=== PATIENT | male | born 1950 | race African-American/Black ===

== ENCOUNTER 2016-12-28 14:59 | Inpatient (IN) | payer MEDICARE, MEDICAID ==
[~2016-12-28] VITALS: Ht 213.4 cm; Wt 110.7 kg
[~2016-12-28 14:59] MED LIST: AMLO10TA80 PO; AZOPT OP; BUDE6HFA IH; CLON0.2T PO; DOXA2TAB PO; HYDR-4134 PO; HYDR-523 PO; LEVO250T2 PO; LISI40TA4 PO; TRAZ150T84 PO; ZOLP10TA6 PO; [UNRECOGNIZED DRUG - OTHER] NG
[2016-12-28] MEDS ORDERED: LORAZEPAM 0.5MG TABLET PO PRN (17:15)
[2016-12-28] MEDS ORDERED: ACETAMINOPHEN 325MG TABLET PO PRN (17:15)
[2016-12-28] MEDS ORDERED: ONDANSETRON HCL 4MG/2ML VIAL IV PRN (17:15)
[2016-12-28 18:01] VITALS: BP 91/74
[2016-12-28 18:09] VITALS: BP 91/74
[2016-12-28] MEDS: IPRATROPIUM/ALBUTEROL 0.5-3(2.5)MG/3ML NEB HHN SCH (18:15)
[2016-12-28] MEDS: PREDNISONE 20MG TABLET PO SCH (18:24)
[2016-12-28 20:00] VITALS: BP 109/85
[2016-12-28] MEDS: IPRATROPIUM/ALBUTEROL 0.5-3(2.5)MG/3ML NEB HHN PRN (20:13)
[2016-12-28] MEDS: HYDROCODONE/APAP 7.5/325MG 1 TAB TABLET PO PRN (20:34)
[2016-12-28] MEDS: ALPRAZOLAM 0.5 MG TABLET PO PRN (20:36)
[2016-12-28] MEDS: ZOLPIDEM TARTRATE 5MG TABLET PO PRN (20:50)
[2016-12-28] MEDS: TRAZODONE HCL 100MG TABLET PO SCH (20:50)
[2016-12-28] MEDS ORDERED: TRAZODONE HCL 100 MG PO SCH (21:00)
[2016-12-28] MEDS ORDERED: ZOLPIDEM TARTRATE 5 MG PO SCH (21:00)
[2016-12-29] MEDS: IPRATROPIUM/ALBUTEROL 0.5-3(2.5)MG/3ML NEB HHN SCH ×7 (00:24→23:37)
[2016-12-29] MEDS: HYDROCODONE/APAP 7.5/325MG 1 TAB TABLET PO PRN ×4 (04:22→20:46)
[2016-12-29 07:04] LABS: BASOPHILS % 0.2 % (0.0-2.0); HEMATOCRIT. 34.2 % (42.0-52.0); HEMOGLOBIN. 11.3 g/dL (14.0-18.0); LYMPHOCYTES % 17.1 % (20.0-50.0); MEAN CORPUSCULAR HEMOGLOBIN 32.4 pg (28.0-32.0); MEAN CORPUSCULAR HGB CONC 33.1 g/dL (31.0-37.0); MEAN PLATELET VOLUME 7.1 fl (7.4-10.4); MONOCYTES % 10.1 % (2.0-8.0); NEUTROPHILS % 72.6 % (40.0-76.0); PLATELET 170 x1000/uL (130-400); RED BLOOD CELL COUNT 3.49 mill/uL (4.7-6.1); RED CELL DISTRIBUTION WIDTH 15.7 % (11.6-14.6); WHITE BLOOD COUNT 5.5 x1000/uL (4.5-11.0)
[2016-12-29 07:17] LABS: BG BASE EXCESS 3.6 mmol/L (-2.0-2.0); BG CARBOXYHEMOGLOBIN 0.5 % (0.5-1.5); BG DEOXYHEMOGLOBIN 3.3 % (0.0-5.0); BG METHEMOGLOBIN 0.2 % (0.0-1.5); BG OXYGEN SATURATION 96.7 % (92.0-98.5); BG PCO2 47.3 mmHg (35.0-45.0); BG PH 7.406 (7.350-7.450); BG PO2 96.2 mmHg (75.0-100.0); BG SAMPLE SITE RIGHT RADIAL; BG TOTAL HEMOGLOBIN 13.4 g/dL (12.0-18.0); BG VENT MODE NASAL CANNULA
[2016-12-29 07:22] LABS: ANION GAP 10; CALCIUM 8.2 mg/dL (8.5-10.1); CARBON DIOXIDE 30 mEq/L (21-32); CHLORIDE 106 mEq/L (98-107); INDEX HEMOLYSI 1 (1-3); INDEX ICTERIC 1 (1-4); INDEX LIPEMIC 1 (1-3); UREA NITROGEN BLOOD 31 mg/dL (7-21); eGFR > 60 mL/min (>60)
[2016-12-29 08:00] VITALS: BP 110/69
[2016-12-29] MEDS: PREDNISONE 20MG TABLET PO SCH ×2 (08:10→17:14)
[2016-12-29] MEDS: DORZOLAMIDE 2% OPHTH 10 ML BOTTLE OP SCH ×2 (08:13→17:14)
[2016-12-29] MEDS: AMLODIPINE 10MG TABLET PO SCH (08:19)
[2016-12-29] MEDS: DOCUSATE SODIUM 100MG CAPSULE PO PRN ×2 (08:19→20:44)
[2016-12-29 20:00] VITALS: BP 115/85
[2016-12-29] MEDS: TRAZODONE HCL 100MG TABLET PO SCH (20:44)
[2016-12-29] MEDS: ZOLPIDEM TARTRATE 5MG TABLET PO PRN (20:55)
[2016-12-29] MEDS: ALPRAZOLAM 0.5 MG TABLET PO PRN (21:26)
[2016-12-30] MEDS: IPRATROPIUM/ALBUTEROL 0.5-3(2.5)MG/3ML NEB HHN SCH ×5 (03:56→20:36)
[2016-12-30] MEDS: HYDROCODONE/APAP 7.5/325MG 1 TAB TABLET PO PRN ×5 (04:58→21:55)
[2016-12-30] MEDS: PREDNISONE 20MG TABLET PO SCH (08:22)
[2016-12-30] MEDS: DOCUSATE SODIUM 100MG CAPSULE PO PRN (08:22)
[2016-12-30] MEDS: AMLODIPINE 10MG TABLET PO SCH (08:23)
[2016-12-30] MEDS: DORZOLAMIDE 2% OPHTH 10 ML BOTTLE OP SCH ×2 (08:23→18:36)
[2016-12-30] MEDS: ALPRAZOLAM 0.5 MG TABLET PO PRN ×2 (11:27→21:53)
[2016-12-30] MEDS: BISACODYL 5MG TABLET PO PRN (11:29)
[2016-12-30 20:00] VITALS: BP 124/90
[2016-12-30] MEDS: ZOLPIDEM TARTRATE 5MG TABLET PO PRN (21:53)
[2016-12-30] MEDS: TRAZODONE HCL 100MG TABLET PO SCH (21:53)
[2016-12-31] MEDS: IPRATROPIUM/ALBUTEROL 0.5-3(2.5)MG/3ML NEB HHN SCH ×5 (03:32→20:20)
[2016-12-31] MEDS: HYDROCODONE/APAP 7.5/325MG 1 TAB TABLET PO PRN ×3 (06:36→21:22)
[2016-12-31 08:00] VITALS: BP 134/94
[2016-12-31] MEDS: DOCUSATE SODIUM 100MG CAPSULE PO PRN ×2 (08:52→17:22)
[2016-12-31] MEDS: AMLODIPINE 10MG TABLET PO SCH (08:53)
[2016-12-31] MEDS: DORZOLAMIDE 2% OPHTH 10 ML BOTTLE OP SCH ×2 (08:53→17:22)
[2016-12-31] MEDS ORDERED: LORAZEPAM 0.5MG TABLET PO PRN (09:15)
[2016-12-31] MEDS ORDERED: SODIUM CHLORIDE 10% FOR INH 15ML VIAL NEB INH SCH (12:00)
[2016-12-31] MEDS: ALPRAZOLAM 0.5 MG TABLET PO PRN ×2 (12:49→22:30)
[2016-12-31 13:42] LABS: ANION GAP 10; CALCIUM 8.5 mg/dL (8.5-10.1); CARBON DIOXIDE 32 mEq/L (21-32); CHLORIDE 104 mEq/L (98-107); INDEX HEMOLYSI 1 (1-3); INDEX ICTERIC 1 (1-4); INDEX LIPEMIC 1 (1-3); UREA NITROGEN BLOOD 21 mg/dL (7-21); eGFR > 60 mL/min (>60)
[2016-12-31 15:45] LABS: BASOPHILS % 0.5 % (0.0-2.0); EOSINOPHILS % 2.7 % (0.0-5.0); HEMATOCRIT. 38.3 % (42.0-52.0); HEMOGLOBIN. 12.6 g/dL (14.0-18.0); LYMPHOCYTES % 25.2 % (20.0-50.0); MEAN CORPUSCULAR HEMOGLOBIN 32.4 pg (28.0-32.0); MEAN CORPUSCULAR HGB CONC 32.8 g/dL (31.0-37.0); MEAN CORPUSCULAR VOLUME 98.7 fL (80.0-94.0); MEAN PLATELET VOLUME 7.1 fl (7.4-10.4); MONOCYTES % 11.1 % (2.0-8.0); NEUTROPHILS % 60.5 % (40.0-76.0); PLATELET 190 x1000/uL (130-400); RED BLOOD CELL COUNT 3.88 mill/uL (4.7-6.1); WHITE BLOOD COUNT 5.6 x1000/uL (4.5-11.0)
[2016-12-31 20:00] VITALS: BP 123/97
[2016-12-31] MEDS: QUETIAPINE FUMARATE 25MG TABLET PO SCH (21:00)
[2016-12-31] MEDS: SULFAMETHOXAZOLE/TRIMETHOPRIM 800/160MG TABLET PO SCH (21:21)
[2016-12-31] MEDS: TRAZODONE HCL 100MG TABLET PO SCH (21:21)
[2016-12-31] MEDS: ZOLPIDEM TARTRATE 5MG TABLET PO PRN (22:30)
[2017-01-01] VITALS: BP 112/88
[2017-01-01] MEDS: IPRATROPIUM/ALBUTEROL 0.5-3(2.5)MG/3ML NEB HHN PRN ×2 (01:34→14:05)
[2017-01-01] MEDS: IPRATROPIUM/ALBUTEROL 0.5-3(2.5)MG/3ML NEB HHN SCH ×6 (03:59→20:05)
[2017-01-01 04:00] VITALS: BP 118/76
[2017-01-01] MEDS: HYDROCODONE/APAP 7.5/325MG 1 TAB TABLET PO PRN ×2 (04:14→17:43)
[2017-01-01 08:00] VITALS: BP 110/87
[2017-01-01] MEDS: DORZOLAMIDE 2% OPHTH 10 ML BOTTLE OP SCH ×2 (09:06→17:30)
[2017-01-01] MEDS: AMLODIPINE 10MG TABLET PO SCH (09:07)
[2017-01-01] MEDS: QUETIAPINE FUMARATE 25MG TABLET PO SCH ×2 (09:07→20:37)
[2017-01-01] MEDS: SULFAMETHOXAZOLE/TRIMETHOPRIM 800/160MG TABLET PO SCH (09:07)
[2017-01-01] MEDS: DOCUSATE SODIUM 100MG CAPSULE PO PRN (09:31)
[2017-01-01] MEDS ORDERED: FUROSEMIDE 40MG/4ML VIAL IVP NR (14:24)
[2017-01-01 20:00] VITALS: BP 131/92
[2017-01-01] MEDS: TRAZODONE HCL 100MG TABLET PO SCH (20:37)
[2017-01-01] MEDS: ALPRAZOLAM 0.5 MG TABLET PO PRN (20:37)
[2017-01-02] MEDS: IPRATROPIUM/ALBUTEROL 0.5-3(2.5)MG/3ML NEB HHN SCH ×6 (00:01→20:13)
[2017-01-02] MEDS: MUPIROCIN 2% OINT 22GM TOP SCH ×3 (03:28→21:25)
[2017-01-02] MEDS: HYDROCODONE/APAP 7.5/325MG 1 TAB TABLET PO PRN ×2 (03:28→21:24)
[2017-01-02] MEDS: ALPRAZOLAM 0.5 MG TABLET PO PRN ×2 (06:52→15:34)
[2017-01-02 08:00] VITALS: BP 92/63
[2017-01-02] MEDS: AMLODIPINE 10MG TABLET PO SCH (08:45)
[2017-01-02] MEDS: QUETIAPINE FUMARATE 25MG TABLET PO SCH ×2 (09:17→21:24)
[2017-01-02] MEDS: BISACODYL 5MG TABLET PO PRN (09:17)
[2017-01-02] MEDS: DORZOLAMIDE 2% OPHTH 10 ML BOTTLE OP SCH ×2 (10:36→16:22)
[2017-01-02 20:00] VITALS: BP 108/72
[2017-01-02 20:36] VITALS: BP 112/84
[2017-01-02] MEDS: MULTIVITAMINS,THER W-MINERALS TABLET PO SCH (21:22)
[2017-01-02] MEDS: TRAZODONE HCL 100MG TABLET PO SCH (21:24)
[2017-01-02] MEDS: ZOLPIDEM TARTRATE 5MG TABLET PO PRN (21:24)
[2017-01-03] MEDS: IPRATROPIUM/ALBUTEROL 0.5-3(2.5)MG/3ML NEB HHN SCH ×6 (00:50→20:16)
[2017-01-03 08:00] VITALS: BP 131/81
[2017-01-03] MEDS: QUETIAPINE FUMARATE 25MG TABLET PO SCH ×2 (08:21→21:55)
[2017-01-03] MEDS: AMLODIPINE 10MG TABLET PO SCH (08:22)
[2017-01-03] MEDS: BISACODYL 5MG TABLET PO PRN (08:22)
[2017-01-03] MEDS: MULTIVITAMINS,THER W-MINERALS TABLET PO SCH (08:22)
[2017-01-03] MEDS: DORZOLAMIDE 2% OPHTH 10 ML BOTTLE OP SCH ×2 (08:23→16:45)
[2017-01-03] MEDS: MUPIROCIN 2% OINT 22GM TOP SCH ×2 (08:23→23:56)
[2017-01-03] MEDS: ALPRAZOLAM 0.5 MG TABLET PO PRN ×2 (13:25→22:00)
[2017-01-03] MEDS: HYDROCODONE/APAP 7.5/325MG 1 TAB TABLET PO PRN ×2 (16:46→20:08)
[2017-01-03 20:00] VITALS: BP 109/77
[2017-01-03] MEDS: TRAZODONE HCL 100MG TABLET PO SCH (21:55)
[2017-01-03] MEDS: ZOLPIDEM TARTRATE 5MG TABLET PO PRN (23:53)
[2017-01-04] MEDS: IPRATROPIUM/ALBUTEROL 0.5-3(2.5)MG/3ML NEB HHN SCH ×7 (00:06→23:27)
[2017-01-04 07:01] LABS: BASOPHILS % 0.5 % (0.0-2.0); EOSINOPHILS % 3.6 % (0.0-5.0); HEMATOCRIT. 35.3 % (42.0-52.0); HEMOGLOBIN. 11.8 g/dL (14.0-18.0); LYMPHOCYTES % 26.9 % (20.0-50.0); MEAN CORPUSCULAR HEMOGLOBIN 32.7 pg (28.0-32.0); MEAN CORPUSCULAR HGB CONC 33.4 g/dL (31.0-37.0); MEAN CORPUSCULAR VOLUME 97.9 fL (80.0-94.0); MEAN PLATELET VOLUME 7.1 fl (7.4-10.4); PLATELET 175 x1000/uL (130-400); RED BLOOD CELL COUNT 3.61 mill/uL (4.7-6.1); RED CELL DISTRIBUTION WIDTH 15.6 % (11.6-14.6); WHITE BLOOD COUNT 4.2 x1000/uL (4.5-11.0)
[2017-01-04 07:02] LABS: ANION GAP 10; CALCIUM 8.2 mg/dL (8.5-10.1); CARBON DIOXIDE 32 mEq/L (21-32); CHLORIDE 102 mEq/L (98-107); INDEX HEMOLYSI 1 (1-3); INDEX ICTERIC 1 (1-4); INDEX LIPEMIC 1 (1-3); UREA NITROGEN BLOOD 17 mg/dL (7-21); eGFR > 60 mL/min (>60)
[2017-01-04 08:00] VITALS: BP 99/79
[2017-01-04] MEDS: MULTIVITAMINS,THER W-MINERALS TABLET PO SCH (08:30)
[2017-01-04] MEDS: QUETIAPINE FUMARATE 25MG TABLET PO SCH ×3 (08:30→20:38)
[2017-01-04] MEDS: DORZOLAMIDE 2% OPHTH 10 ML BOTTLE OP SCH ×2 (08:30→16:47)
[2017-01-04] MEDS: MUPIROCIN 2% OINT 22GM TOP SCH ×2 (08:30→20:28)
[2017-01-04] MEDS: AMLODIPINE 10MG TABLET PO SCH (08:33)
[2017-01-04] MEDS ORDERED: COLISTIMETHATE SODIUM 150MG/VIAL INH SCH (15:00)
[2017-01-04] MEDS: ALPRAZOLAM 0.5 MG TABLET PO PRN ×2 (15:12→20:38)
[2017-01-04] MEDS: BISACODYL 5MG TABLET PO PRN (15:13)
[2017-01-04] MEDS ORDERED: ZOLPIDEM TARTRATE 5MG TABLET PO PRN (16:30)
[2017-01-04 20:00] VITALS: BP 119/85
[2017-01-04] MEDS: TRAZODONE HCL 100MG TABLET PO SCH (20:28)
[2017-01-04] MEDS: HYDROCODONE/APAP 7.5/325MG 1 TAB TABLET PO PRN (20:33)
[2017-01-05] VITALS: BP 100/68
[2017-01-05] MEDS: IPRATROPIUM/ALBUTEROL 0.5-3(2.5)MG/3ML NEB HHN SCH ×5 (01:53→15:45)
[2017-01-05] MEDS: HYDROCODONE/APAP 7.5/325MG 1 TAB TABLET PO PRN (07:02)
[2017-01-05 08:17] VITALS: BP 101/65
[2017-01-05] MEDS: MULTIVITAMINS,THER W-MINERALS TABLET PO SCH (10:13)
[2017-01-05] MEDS: ALPRAZOLAM 0.5 MG TABLET PO PRN (10:14)
[2017-01-05] MEDS: DORZOLAMIDE 2% OPHTH 10 ML BOTTLE OP SCH (10:14)
[2017-01-05] MEDS: AMLODIPINE 10MG TABLET PO SCH (10:14)
[2017-01-05] MEDS: MUPIROCIN 2% OINT 22GM TOP SCH (10:15)
[2017-01-05] MEDS: QUETIAPINE FUMARATE 25MG TABLET PO SCH (10:16)
[2017-01-05 15:59] VITALS: BP 102/79
== END 2017-01-05 16:25 | DRG 189 ==
PROVIDERS: ADMIT Psychiatry & Neurology Neurology; ATTEND Internal Medicine Critical Care Medicine
DX: J96.20 Acute and chronic respiratory failure, unspecified whether with hypoxia or hypercapnia (principal); J44.1 Chronic obstructive pulmonary disease with (acute) exacerbation; I47.1 Supraventricular tachycardia; J84.9 Interstitial pulmonary disease, unspecified; E78.5 Hyperlipidemia, unspecified; F06.31 Mood disorder due to known physiological condition with depressive features; G47.00 Insomnia, unspecified; G89.29 Other chronic pain; H26.9 Unspecified cataract; I11.9 Hypertensive heart disease without heart failure; I27.2 Other secondary pulmonary hypertension; F17.210 Nicotine dependence, cigarettes, uncomplicated; R91.8 Other nonspecific abnormal finding of lung field; Z96.89 Presence of other specified functional implants; B96.89 Other specified bacterial agents as the cause of diseases classified elsewhere; Z16.39 Resistance to other specified antimicrobial drug; Z60.2 Problems related to living alone; F41.9 Anxiety disorder, unspecified; I27.81 Cor pulmonale (chronic); I48.0 Paroxysmal atrial fibrillation; I71.2 Thoracic aortic aneurysm, without rupture; M54.30 Sciatica, unspecified side; R62.7 Adult failure to thrive; Z66 Do not resuscitate; Z82.49 Family history of ischemic heart disease and other diseases of the circulatory system; Z90.5 Acquired absence of kidney; Z83.3 Family history of diabetes mellitus; Z99.81 Dependence on supplemental oxygen; Z82.5 Family history of asthma and other chronic lower respiratory diseases
CPT/HCPCS: 36415; 36600; 71010; 80048; 82375; 82805; 83605; 85025; 87070; 87077; 87186; 93970; 94640; 97110; 97116; 97150; 97162; 97166; 97530; 97535; J0770; J1940; J7131; J7512; J7620

== ENCOUNTER 2017-05-12 03:05 | Emergency (ER) | payer MEDICARE, MEDICAID ==
[~2017-05-12] VITALS: Ht 175.3 cm; Wt 100.0 kg
[2017-05-12] MEDS ORDERED: IPRATROPIUM BROMIDE (0.02%) 0.5MG/2.5ML NEB HHN STA (04:26)
[2017-05-12] MEDS ORDERED: METHYLPREDNISOLONE SOD SUCC 125 MG/2 ML VIAL IV STA (04:26)
[2017-05-12] MEDS ORDERED: ALBUTEROL (0.083%) 2.5MG/3ML NEB HHN STA (04:26)
[2017-05-12 05:05] LABS: EOSINOPHILS % 0.4 % (0.0-5.0); HEMATOCRIT. 39.4 % (42.0-52.0); HEMOGLOBIN. 13.1 g/dL (14.0-18.0); LYMPHOCYTES % 19.8 % (20.0-50.0); MEAN CORPUSCULAR HEMOGLOBIN 31.8 pg (28.0-32.0); MEAN CORPUSCULAR VOLUME 95.3 fL (80.0-94.0); MEAN PLATELET VOLUME 7.6 fl (7.4-10.4); MONOCYTES % 12.4 % (2.0-8.0); NEUTROPHILS % 66.4 % (40.0-76.0); PLATELET 216 x1000/uL (130-400); RED BLOOD CELL COUNT 4.14 mill/uL (4.7-6.1); RED CELL DISTRIBUTION WIDTH 13.8 % (11.6-14.6)
[2017-05-12 05:21] LABS: CARBON DIOXIDE 37 mEq/L (21-32); CHLORIDE 100 mEq/L (98-107); TROPONIN I < 0.02 ng/mL (0.00-0.04)
[2017-05-12 05:36] LABS: INR 1.1; PROTHROMBIN TIME 11.4 sec
[2017-05-12 08:55] VITALS: BP 170/90
== END 2017-05-12 09:06 | disposition home or self-care (01) ==
LOC: ER 03:10
DX: J44.1 Chronic obstructive pulmonary disease with (acute) exacerbation (principal); Z87.891 Personal history of nicotine dependence
CPT/HCPCS: 36415; 71010; 80053; 83880; 84484; 85025; 85610; 94644; 96374; 99285; J2930; J7611

== ENCOUNTER 2017-07-08 17:57 | Inpatient (IN) | payer MEDICARE, MEDICAID ==
[2017-07-08] VITALS (8 sets, daily range): BP systolic 85–105; BP diastolic 48–66
[~2017-07-08] VITALS: Ht 175.3 cm; Wt 106.6 kg
[~2017-07-08 17:57] MED LIST changes: -AMLO10TA80 PO; -AZOPT OP; -BUDE6HFA IH; -CLON0.2T PO; -DOXA2TAB PO; +ETOMIDATE 2MG/ML 10ML VIAL IV ONE; -HYDR-4134 PO; -HYDR-523 PO; -LEVO250T2 PO; -LISI40TA4 PO; +SUCCINYLCHOLINE CHLORIDE 200MG/10ML VIAL IV ONE; -TRAZ150T84 PO; -ZOLP10TA6 PO; -[UNRECOGNIZED DRUG - OTHER] NG
[2017-07-08] MEDS ORDERED: MIDAZOLAM HCL 50 MG in DEXTROSE 5% WATER 40 ML IV ONE (18:30)
[2017-07-08] MEDS ORDERED: MIDAZOLAM HCL 50 MG in DEXTROSE 5% WATER 50ML IV PRN (18:30)
[2017-07-08] MEDS ORDERED: MIDAZOLAM HCL 2 MG/2 ML VIAL IV ONE ×2 (18:30→18:45)
[2017-07-08 18:45] LABS: BASOPHILS % 0.5 % (0.0-2.0); HEMATOCRIT. 36.6 % (42.0-52.0); LYMPHOCYTES % 8.3 % (20.0-50.0); MEAN CORPUSCULAR HEMOGLOBIN 31.9 pg (28.0-32.0); MEAN CORPUSCULAR VOLUME 97.7 fL (80.0-94.0); MEAN PLATELET VOLUME 7.7 fl (7.4-10.4); MONOCYTES % 13.9 % (2.0-8.0); NEUTROPHILS % 77.3 % (40.0-76.0); PLATELET 236 x1000/uL (130-400); RED BLOOD CELL COUNT 3.75 mill/uL (4.7-6.1); RED CELL DISTRIBUTION WIDTH 14.4 % (11.6-14.6)
[2017-07-08 18:48] LABS: PROTHROMBIN TIME 10.9 sec (9.4-11.6)
[2017-07-08] MEDS ORDERED: MIDAZOLAM HCL 2 MG/2 ML VIAL ONE (18:49)
[2017-07-08 18:52] LABS: CHLORIDE 96 mEq/L (98-107)
[2017-07-08 18:53] LABS: CLARITY URINE CLOUDY (CLEAR); COLOR URINE YELLOW (YELLOW); GLUCOSE URINE NEGATIVE (NEGATIVE); KETONES URINE NEGATIVE (NEGATIVE); LEUKOCYTE ESTERASE URINE NEGATIVE (NEGATIVE); NITRITE URINE NEGATIVE (NEGATIVE); OCCULT BLOOD URINE NEGATIVE (NEGATIVE); PROTEIN URINE 1+ (NEGATIVE); SPECIFIC GRAVITY URINE 1.023 (1.005-1.030); UROBILINOGEN URINE 0.2 E.U./dL (0.2-1.0)
[2017-07-08 18:57] LABS: CARBON DIOXIDE 43 mEq/L (21-32); TROPONIN I < 0.02 ng/mL (0.00-0.04)
[2017-07-08] MEDS ORDERED: ALBUTEROL (0.5%) 2.5MG/0.5ML NEB HHN ONE (19:15)
[2017-07-08] MEDS ORDERED: PROPOFOL 10MG/ML 100ML 100 ML IV SCH (19:15)
[2017-07-08] MEDS ORDERED: METHYLPREDNISOLONE SOD SUCC 125 MG/2 ML VIAL IV ONE (19:15)
[2017-07-08 20:54] LABS: BG BASE EXCESS 13.4 mmol/L (-2.0-2.0); BG CARBOXYHEMOGLOBIN 0.3 % (0.5-1.5); BG DEOXYHEMOGLOBIN 0.5 % (0.0-5.0); BG FRACTION INSPIRED OXYGEN 100; BG HCO3 ACT 42.2 mmol/L (22.0-26.0); BG METHEMOGLOBIN 0.5 % (0.0-1.5); BG OXYGEN SATURATION 99.5 % (92.0-98.5); BG OXYHEMOGLOBIN 98.7 % (94.0-97.0); BG PCO2 78.9 mmHg (35.0-45.0); BG PH 7.346 (7.350-7.450); BG PO2 411.5 mmHg (75.0-100.0); BG SAMPLE SITE LEFT RADIAL; BG TIDAL VOLUME(mL) 500 mL; BG TOTAL HEMOGLOBIN 11.8 g/dL (12.0-18.0); BG VENT MODE VENT - A/C; BG VENT RATE 20 set
[2017-07-08] MEDS ORDERED: NOREPINEPHRINE 8 MG in DEXT 5% WATER 242 ML IV PRN (23:15)
[2017-07-08] MEDS ORDERED: IPRATROPIUM/ALBUTEROL 0.5-3(2.5)MG/3ML NEB HHN PRN (23:15)
[2017-07-08] MEDS: METHYLPREDNISOLONE SOD SUCC 40 MG/ML VIAL IV SCH (23:32)
[2017-07-08] MEDS: FUROSEMIDE 40MG/4ML VIAL IVP SCH (23:32)
[2017-07-08] MEDS: IPRATROPIUM/ALBUTEROL 0.5-3(2.5)MG/3ML NEB HHN SCH (23:56)
[2017-07-08] MEDS: MIDAZOLAM HCL 100 MG in DEXT 5% WATER 80 ML IV PRN (23:57)
[2017-07-09] VITALS (74 sets, daily range): BP systolic 85–129; BP diastolic 57–92
[2017-07-09] MEDS ORDERED: MIDAZOLAM HCL 100 MG in DEXT 5% WATER 100 ML IV PRN (00:30)
[2017-07-09 06:14] LABS: BG BASE EXCESS 12.2 mmol/L (-2.0-2.0); BG DEOXYHEMOGLOBIN 2.4 % (0.0-5.0); BG FRACTION INSPIRED OXYGEN 60; BG HCO3 ACT 39.1 mmol/L (22.0-26.0); BG METHEMOGLOBIN 0.1 % (0.0-1.5); BG OXYGEN SATURATION 97.6 % (92.0-98.5); BG OXYHEMOGLOBIN 97.5 % (94.0-97.0); BG PCO2 63.9 mmHg (35.0-45.0); BG PH 7.405 (7.350-7.450); BG PO2 110.3 mmHg (75.0-100.0); BG SAMPLE SITE RIGHT BRACHIAL; BG TIDAL VOLUME(mL) 500 mL; BG TOTAL HEMOGLOBIN 11.3 g/dL (12.0-18.0); BG VENT MODE VENT - A/C; BG VENT RATE 18 set
[2017-07-09] MEDS: METHYLPREDNISOLONE SOD SUCC 40 MG/ML VIAL IV SCH (06:50)
[2017-07-09] MEDS: MIDAZOLAM HCL 100 MG in DEXT 5% WATER 80 ML IV PRN (06:53)
[2017-07-09 07:18] LABS: CHLORIDE 99 mEq/L (98-107)
[2017-07-09 07:37] LABS: HEMATOCRIT. 31.7 % (42.0-52.0); HEMOGLOBIN. 10.4 g/dL (14.0-18.0); MEAN CORPUSCULAR HEMOGLOBIN 31.6 pg (28.0-32.0); MEAN CORPUSCULAR VOLUME 96.6 fL (80.0-94.0); PLATELET 207 x1000/uL (130-400); RED BLOOD CELL COUNT 3.28 mill/uL (4.7-6.1); RED CELL DISTRIBUTION WIDTH 14.3 % (11.6-14.6)
[2017-07-09] MEDS: PROPOFOL 10MG/ML 100ML 100 ML IV PRN ×5 (07:47→22:20)
[2017-07-09] MEDS: METHYLPREDNISOLONE SOD SUCC 125 MG/2 ML VIAL IV SCH ×2 (08:25→16:07)
[2017-07-09] MEDS: FUROSEMIDE 40MG/4ML VIAL IVP SCH ×2 (08:25→16:07)
[2017-07-09 08:44] LABS: CARBON DIOXIDE 40 mEq/L (21-32)
[2017-07-09] MEDS: CEFEPIME 1,000 MG in DEXTROSE 5% WATER 50 ML IV SCH ×2 (10:07→22:12)
[2017-07-09] MEDS: PANTOPRAZOLE SODIUM 40 MG/VIAL IV SCH (11:47)
[2017-07-09] MEDS: ACETYLCYSTEINE 100MG/ML 10% VIAL 4ML INH SCH ×2 (11:50→20:12)
[2017-07-09] MEDS: IPRATROPIUM/ALBUTEROL 0.5-3(2.5)MG/3ML NEB HHN SCH ×2 (11:50→20:12)
[2017-07-09] MEDS: BUDESONIDE 0.5MG/2ML NEB HHN SCH ×2 (11:50→20:12)
[2017-07-09] MEDS: MORPHINE SULFATE 4 MG/ML CPJ (NOT FOR IM USE) IV PRN (12:27)
[2017-07-09 12:52] LABS: PLATELET ESTIMATE NORMAL
[2017-07-09] MEDS: THEOPHYLLINE ANHYDROUS 80 MG/15 ML 120ML PO SCH ×2 (13:27→22:12)
[2017-07-09] MEDS: SILDENAFIL CITRATE 20MG TABLET PO SCH ×2 (13:27→22:12)
[2017-07-09] MEDS: LORAZEPAM 2MG/ML CPJ IV PRN (14:14)
[2017-07-09] MEDS: ACETAMINOPHEN 650MG/20.3ML UDC PO PRN (16:07)
[2017-07-09] MEDS: ENOXAPARIN 30MG/0.3ML SYR SUBCUT SCH (21:48)
[2017-07-10] VITALS (47 sets, daily range): BP systolic 109–150; BP diastolic 74–100
[2017-07-10] MEDS: ACETYLCYSTEINE 100MG/ML 10% VIAL 4ML INH SCH ×7 (00:10→20:19)
[2017-07-10] MEDS: PROPOFOL 10MG/ML 100ML 100 ML IV PRN ×8 (00:34→23:20)
[2017-07-10] MEDS: METHYLPREDNISOLONE SOD SUCC 125 MG/2 ML VIAL IV SCH ×4 (00:35→23:20)
[2017-07-10] MEDS: IPRATROPIUM/ALBUTEROL 0.5-3(2.5)MG/3ML NEB HHN SCH ×6 (00:42→20:19)
[2017-07-10] MEDS: MORPHINE SULFATE 4 MG/ML CPJ (NOT FOR IM USE) IV PRN (04:45)
[2017-07-10] MEDS: THEOPHYLLINE ANHYDROUS 80 MG/15 ML 120ML PO SCH ×3 (05:44→21:07)
[2017-07-10] MEDS: SILDENAFIL CITRATE 20MG TABLET PO SCH ×3 (05:45→21:07)
[2017-07-10 06:21] LABS: HEMATOCRIT. 33.1 % (42.0-52.0); HEMOGLOBIN. 10.9 g/dL (14.0-18.0); MEAN CORPUSCULAR HEMOGLOBIN 31.7 pg (28.0-32.0); MEAN CORPUSCULAR VOLUME 96.2 fL (80.0-94.0); MEAN PLATELET VOLUME 8.1 fl (7.4-10.4); PLATELET 218 x1000/uL (130-400); RED BLOOD CELL COUNT 3.44 mill/uL (4.7-6.1); RED CELL DISTRIBUTION WIDTH 14.6 % (11.6-14.6)
[2017-07-10 06:48] LABS: CHLORIDE 97 mEq/L (98-107)
[2017-07-10 08:05] LABS: CARBON DIOXIDE 40 mEq/L (21-32)
[2017-07-10] MEDS: FUROSEMIDE 40MG/4ML VIAL IVP SCH ×2 (08:51→17:06)
[2017-07-10] MEDS: PANTOPRAZOLE SODIUM 40 MG/VIAL IV SCH (08:51)
[2017-07-10] MEDS: ENOXAPARIN 30MG/0.3ML SYR SUBCUT SCH ×2 (08:52→21:06)
[2017-07-10] MEDS: BUDESONIDE 0.5MG/2ML NEB HHN SCH ×2 (09:02→20:03)
[2017-07-10] MEDS: CEFEPIME 1,000 MG in DEXTROSE 5% WATER 50 ML IV SCH ×2 (09:02→21:07)
[2017-07-10 09:28] LABS: BG BASE EXCESS 16.3 mmol/L (-2.0-2.0); BG CARBOXYHEMOGLOBIN 0.3 % (0.5-1.5); BG DEOXYHEMOGLOBIN 7.9 % (0.0-5.0); BG FRACTION INSPIRED OXYGEN 40; BG HCO3 ACT 42.3 mmol/L (22.0-26.0); BG OXYGEN SATURATION 92.1 % (92.0-98.5); BG OXYHEMOGLOBIN 91.8 % (94.0-97.0); BG PCO2 58.4 mmHg (35.0-45.0); BG PH 7.478 (7.350-7.450); BG PO2 65.2 mmHg (75.0-100.0); BG SAMPLE SITE RIGHT BRACHIAL; BG TIDAL VOLUME(mL) 500 mL; BG TOTAL HEMOGLOBIN 11.5 g/dL (12.0-18.0); BG VENT MODE VENT - A/C; BG VENT RATE 18 set
[2017-07-10 12:09] LABS: PLATELET ESTIMATE NORMAL
[2017-07-10] MEDS: LORAZEPAM 2MG/ML CPJ IV PRN ×2 (17:26→23:37)
[2017-07-11] VITALS (48 sets, daily range): BP systolic 105–142; BP diastolic 71–98
[2017-07-11] MEDS: IPRATROPIUM/ALBUTEROL 0.5-3(2.5)MG/3ML NEB HHN SCH ×6 (00:08→20:13)
[2017-07-11] MEDS: PROPOFOL 10MG/ML 100ML 100 ML IV PRN ×7 (02:11→23:24)
[2017-07-11] MEDS: MORPHINE SULFATE 4 MG/ML CPJ (NOT FOR IM USE) IV PRN ×2 (03:25→22:44)
[2017-07-11] MEDS: ACETYLCYSTEINE 100MG/ML 10% VIAL 4ML INH SCH ×5 (04:24→20:14)
[2017-07-11 04:54] LABS: HEMATOCRIT. 32.5 % (42.0-52.0); HEMOGLOBIN. 10.8 g/dL (14.0-18.0); MEAN CORPUSCULAR HEMOGLOBIN 32.1 pg (28.0-32.0); MEAN CORPUSCULAR VOLUME 96.5 fL (80.0-94.0); PLATELET 214 x1000/uL (130-400); RED BLOOD CELL COUNT 3.37 mill/uL (4.7-6.1); RED CELL DISTRIBUTION WIDTH 14.3 % (11.6-14.6)
[2017-07-11] MEDS: SILDENAFIL CITRATE 20MG TABLET PO SCH ×3 (05:12→22:23)
[2017-07-11] MEDS: THEOPHYLLINE ANHYDROUS 80 MG/15 ML 120ML PO SCH ×3 (05:13→22:23)
[2017-07-11] MEDS: BUDESONIDE 0.5MG/2ML NEB HHN SCH ×2 (07:53→20:13)
[2017-07-11] MEDS: FUROSEMIDE 40MG/4ML VIAL IVP SCH ×2 (09:08→16:00)
[2017-07-11] MEDS: METHYLPREDNISOLONE SOD SUCC 125 MG/2 ML VIAL IV SCH ×2 (09:08→15:42)
[2017-07-11] MEDS: ENOXAPARIN 30MG/0.3ML SYR SUBCUT SCH ×2 (09:08→22:23)
[2017-07-11] MEDS: PANTOPRAZOLE SODIUM 40 MG/VIAL IV SCH (09:08)
[2017-07-11] MEDS: CEFEPIME 1,000 MG in DEXTROSE 5% WATER 50 ML IV SCH ×2 (09:09→22:23)
[2017-07-11 10:35] LABS: PLATELET ESTIMATE NORMAL
[2017-07-11 11:00] LABS: BG BASE EXCESS 14.1 mmol/L (-2.0-2.0); BG CARBOXYHEMOGLOBIN 0.3 % (0.5-1.5); BG DEOXYHEMOGLOBIN 6.7 % (0.0-5.0); BG FRACTION INSPIRED OXYGEN 50; BG HCO3 ACT 40.3 mmol/L (22.0-26.0); BG METHEMOGLOBIN 0.1 % (0.0-1.5); BG OXYGEN SATURATION 93.3 % (92.0-98.5); BG OXYHEMOGLOBIN 92.9 % (94.0-97.0); BG PCO2 57.9 mmHg (35.0-45.0); BG PO2 73.7 mmHg (75.0-100.0); BG SAMPLE SITE RIGHT RADIAL; BG TIDAL VOLUME(mL) 500 mL; BG TOTAL HEMOGLOBIN 12.1 g/dL (12.0-18.0); BG VENT MODE VENT - A/C; BG VENT RATE 18 set
[2017-07-11 13:44] LABS: BG BASE EXCESS 17.4 mmol/L (-2.0-2.0); BG CARBOXYHEMOGLOBIN 0.3 % (0.5-1.5); BG DEOXYHEMOGLOBIN 4.6 % (0.0-5.0); BG FRACTION INSPIRED OXYGEN 50; BG METHEMOGLOBIN 0.2 % (0.0-1.5); BG OXYGEN SATURATION 95.4 % (92.0-98.5); BG OXYHEMOGLOBIN 94.9 % (94.0-97.0); BG PCO2 55.3 mmHg (35.0-45.0); BG PH 7.509 (7.350-7.450); BG PO2 78.6 mmHg (75.0-100.0); BG SAMPLE SITE RIGHT RADIAL; BG TIDAL VOLUME(mL) 550 mL; BG VENT MODE VENT - A/C; BG VENT RATE 18 set
[2017-07-11] MEDS: ACETAMINOPHEN 650MG/20.3ML UDC PO PRN (19:36)
[2017-07-11] MEDS ORDERED: POTASSIUM CHLORIDE 20MEQ/PACKET PO SCH (19:45)
[2017-07-11] MEDS: METHYLPREDNISOLONE SOD SUCC 40 MG/ML VIAL IV SCH (23:18)
[2017-07-12] VITALS (66 sets, daily range): BP systolic 106–159; BP diastolic 71–111
[2017-07-12] MEDS: IPRATROPIUM/ALBUTEROL 0.5-3(2.5)MG/3ML NEB HHN SCH ×7 (00:01→23:44)
[2017-07-12] MEDS: PROPOFOL 10MG/ML 100ML 100 ML IV PRN ×2 (02:43→05:55)
[2017-07-12] MEDS: ACETYLCYSTEINE 100MG/ML 10% VIAL 4ML INH SCH ×6 (04:35→23:45)
[2017-07-12] MEDS: THEOPHYLLINE ANHYDROUS 80 MG/15 ML 120ML PO SCH ×3 (05:18→22:40)
[2017-07-12] MEDS: SILDENAFIL CITRATE 20MG TABLET PO SCH ×3 (05:18→22:40)
[2017-07-12 05:50] LABS: BASOPHILS % 0.2 % (0.0-2.0); HEMOGLOBIN. 11.1 g/dL (14.0-18.0); LYMPHOCYTES % 7.2 % (20.0-50.0); MEAN CORPUSCULAR HEMOGLOBIN 32.2 pg (28.0-32.0); MEAN CORPUSCULAR VOLUME 95.9 fL (80.0-94.0); MEAN PLATELET VOLUME 7.9 fl (7.4-10.4); MONOCYTES % 10.4 % (2.0-8.0); NEUTROPHILS % 82.2 % (40.0-76.0); PLATELET 213 x1000/uL (130-400); RED BLOOD CELL COUNT 3.44 mill/uL (4.7-6.1); RED CELL DISTRIBUTION WIDTH 14.2 % (11.6-14.6)
[2017-07-12 06:57] LABS: CHLORIDE 97 mEq/L (98-107); THEOPHYLLINE 5.6 ug/mL (10-20)
[2017-07-12 07:20] LABS: CARBON DIOXIDE 43 mEq/L (21-32)
[2017-07-12] MEDS: BUDESONIDE 0.5MG/2ML NEB HHN SCH ×2 (08:28→19:51)
[2017-07-12] MEDS: FUROSEMIDE 40MG/4ML VIAL IVP SCH (09:00)
[2017-07-12] MEDS: METHYLPREDNISOLONE SOD SUCC 40 MG/ML VIAL IV SCH ×3 (09:00→23:30)
[2017-07-12] MEDS: CEFEPIME 1,000 MG in DEXTROSE 5% WATER 50 ML IV SCH ×2 (09:01→21:24)
[2017-07-12] MEDS: PANTOPRAZOLE SODIUM 40 MG/VIAL IV SCH (09:01)
[2017-07-12] MEDS: ENOXAPARIN 30MG/0.3ML SYR SUBCUT SCH ×2 (09:02→21:24)
[2017-07-12 09:26] LABS: BG BASE EXCESS 13.1 mmol/L (-2.0-2.0); BG CARBOXYHEMOGLOBIN 0.5 % (0.5-1.5); BG FRACTION INSPIRED OXYGEN 50; BG HCO3 ACT 38.5 mmol/L (22.0-26.0); BG METHEMOGLOBIN 0.3 % (0.0-1.5); BG OXYHEMOGLOBIN 96.2 % (94.0-97.0); BG PCO2 51.3 mmHg (35.0-45.0); BG PH 7.493 (7.350-7.450); BG PO2 96.1 mmHg (75.0-100.0); BG SAMPLE SITE RIGHT RADIAL; BG TIDAL VOLUME(mL) 550 mL; BG TOTAL HEMOGLOBIN 13.4 g/dL (12.0-18.0); BG VENT MODE VENT - A/C; BG VENT RATE 14 set
[2017-07-12] MEDS: LORAZEPAM 2MG/ML CPJ IV PRN ×2 (09:49→18:12)
[2017-07-12] MEDS: FENTANYL CITRATE/PF 500 MCG in SODIUM CHLORIDE 0.9% 40 ML IV PRN ×2 (10:57→16:53)
[2017-07-12] MEDS: COLISTIMETHATE SODIUM 150MG/VIAL INH SCH ×2 (12:55→20:25)
[2017-07-12] MEDS ORDERED: FENTANYL CITRATE/PF 1,000 MCG in SODIUM CHLORIDE 0.9% 80 ML IV PRN (21:30)
[2017-07-12] MEDS ORDERED: FENTANYL CITRATE/PF 1,000 MCG in SODIUM CHLORIDE 0.9% 80 ML IV SCH (22:00)
[2017-07-12] MEDS: MORPHINE SULFATE 4 MG/ML CPJ (NOT FOR IM USE) IV PRN (22:22)
[2017-07-13] VITALS (34 sets, daily range): BP systolic 108–168; BP diastolic 63–102
[2017-07-13] MEDS: LORAZEPAM 2MG/ML CPJ IV PRN ×4 (01:11→21:39)
[2017-07-13] MEDS: IPRATROPIUM/ALBUTEROL 0.5-3(2.5)MG/3ML NEB HHN SCH ×5 (03:21→19:52)
[2017-07-13] MEDS: ACETYLCYSTEINE 100MG/ML 10% VIAL 4ML INH SCH ×5 (03:32→19:53)
[2017-07-13] MEDS: THEOPHYLLINE ANHYDROUS 80 MG/15 ML 120ML PO SCH ×3 (06:05→22:50)
[2017-07-13] MEDS: SILDENAFIL CITRATE 20MG TABLET PO SCH ×3 (06:05→21:39)
[2017-07-13 06:15] LABS: BASOPHILS % 0.2 % (0.0-2.0); HEMATOCRIT. 34.9 % (42.0-52.0); HEMOGLOBIN. 11.4 g/dL (14.0-18.0); LYMPHOCYTES % 7.8 % (20.0-50.0); MEAN CORPUSCULAR HEMOGLOBIN 31.9 pg (28.0-32.0); MEAN CORPUSCULAR VOLUME 97.5 fL (80.0-94.0); MEAN PLATELET VOLUME 7.9 fl (7.4-10.4); MONOCYTES % 11.3 % (2.0-8.0); NEUTROPHILS % 80.7 % (40.0-76.0); PLATELET 233 x1000/uL (130-400); RED BLOOD CELL COUNT 3.57 mill/uL (4.7-6.1)
[2017-07-13 06:34] LABS: CHLORIDE 101 mEq/L (98-107)
[2017-07-13 07:05] LABS: CARBON DIOXIDE 43 mEq/L (21-32)
[2017-07-13] MEDS: METHYLPREDNISOLONE SOD SUCC 40 MG/ML VIAL IV SCH ×2 (07:26→16:56)
[2017-07-13] MEDS: BUDESONIDE 0.5MG/2ML NEB HHN SCH ×2 (07:49→19:52)
[2017-07-13] MEDS: COLISTIMETHATE SODIUM 150MG/VIAL INH SCH (07:49)
[2017-07-13] MEDS: ACETAMINOPHEN 650MG/20.3ML UDC PO PRN (08:57)
[2017-07-13] MEDS: ENOXAPARIN 30MG/0.3ML SYR SUBCUT SCH ×2 (08:58→21:38)
[2017-07-13] MEDS: FUROSEMIDE 40MG/4ML VIAL IVP SCH (08:58)
[2017-07-13] MEDS: PANTOPRAZOLE SODIUM 40 MG/VIAL IV SCH (08:58)
[2017-07-13] MEDS: CEFEPIME 1,000 MG in DEXTROSE 5% WATER 50 ML IV SCH (09:00)
[2017-07-13 10:56] LABS: BG BASE EXCESS 19.4 mmol/L (-2.0-2.0); BG CARBOXYHEMOGLOBIN 0.4 % (0.5-1.5); BG CPAP (cmH2O) 0 cm(H2O); BG METHEMOGLOBIN 0.3 % (0.0-1.5); BG OXYHEMOGLOBIN 92.3 % (94.0-97.0); BG PCO2 67.6 mmHg (35.0-45.0); BG PO2 71.9 mmHg (75.0-100.0); BG SAMPLE SITE RIGHT RADIAL; BG TOTAL HEMOGLOBIN 13.2 g/dL (12.0-18.0); BG VENT MODE VENT - CPAP
[2017-07-13] MEDS ORDERED: LORAZEPAM 2MG/ML CPJ IV PRN (13:00)
[2017-07-13] MEDS: LEVOFLOXACIN 750MG PREMIX 150 ML IV SCH (13:30)
[2017-07-13 16:29] LABS: BG BASE EXCESS 18.9 mmol/L (-2.0-2.0); BG CARBOXYHEMOGLOBIN 0.3 % (0.5-1.5); BG DEOXYHEMOGLOBIN 1.8 % (0.0-5.0); BG HCO3 ACT 46.6 mmol/L (22.0-26.0); BG METHEMOGLOBIN 0.3 % (0.0-1.5); BG OXYGEN SATURATION 98.2 % (92.0-98.5); BG OXYHEMOGLOBIN 97.6 % (94.0-97.0); BG PH 7.447 (7.350-7.450); BG PO2 138.8 mmHg (75.0-100.0); BG SAMPLE SITE RIGHT RADIAL; BG TOTAL HEMOGLOBIN 12.7 g/dL (12.0-18.0); BG VENT MODE T-TUBE
[2017-07-14] VITALS (20 sets, daily range): BP systolic 114–157; BP diastolic 78–106
[2017-07-14] MEDS: METHYLPREDNISOLONE SOD SUCC 40 MG/ML VIAL IV SCH ×3 (00:01→21:22)
[2017-07-14] MEDS: LORAZEPAM 2MG/ML CPJ IV PRN ×4 (00:01→22:17)
[2017-07-14] MEDS: ACETYLCYSTEINE 100MG/ML 10% VIAL 4ML INH SCH ×4 (00:15→17:56)
[2017-07-14] MEDS: IPRATROPIUM/ALBUTEROL 0.5-3(2.5)MG/3ML NEB HHN SCH ×6 (00:15→20:49)
[2017-07-14] MEDS: THEOPHYLLINE ANHYDROUS 80 MG/15 ML 120ML PO SCH ×3 (05:26→22:19)
[2017-07-14] MEDS: SILDENAFIL CITRATE 20MG TABLET PO SCH ×3 (05:26→21:22)
[2017-07-14] MEDS: PANTOPRAZOLE SODIUM 40 MG/VIAL IV SCH (07:46)
[2017-07-14] MEDS: ACETAMINOPHEN 650MG/20.3ML UDC PO PRN (07:46)
[2017-07-14] MEDS: ENOXAPARIN 30MG/0.3ML SYR SUBCUT SCH ×2 (07:47→21:22)
[2017-07-14] MEDS ORDERED: LORAZEPAM 2MG/ML CPJ IV PRN (08:00)
[2017-07-14] MEDS: BUDESONIDE 0.5MG/2ML NEB HHN SCH ×2 (08:38→20:50)
[2017-07-14] MEDS: AMLODIPINE 5MG TABLET PO SCH ×2 (10:51→21:22)
[2017-07-14] MEDS: HYDROCODONE/ACETAMINOPHEN 5/325MG TABLET PO PRN ×3 (10:52→19:49)
[2017-07-14] MEDS: LOSARTAN POTASSIUM 25 MG TABLET PO SCH (10:55)
[2017-07-14] MEDS: LEVOFLOXACIN 750MG PREMIX 150 ML IV SCH (13:41)
[2017-07-14] MEDS ORDERED: ACETYLCYSTEINE 100MG/ML 10% VIAL 4ML INH SCH (16:00)
[2017-07-14] MEDS ORDERED: ALPRAZOLAM 0.5 MG TABLET PO PRN (19:38)
[2017-07-14] MEDS ORDERED: ZOLPIDEM TARTRATE 5MG TABLET PO PRN (19:38)
[2017-07-15] VITALS (10 sets, daily range): BP systolic 111–149; BP diastolic 69–93
[2017-07-15] MEDS: HYDROCODONE/ACETAMINOPHEN 5/325MG TABLET PO PRN ×3 (00:12→09:26)
[2017-07-15] MEDS: IPRATROPIUM/ALBUTEROL 0.5-3(2.5)MG/3ML NEB HHN SCH ×6 (00:38→20:18)
[2017-07-15] MEDS: ACETYLCYSTEINE 100MG/ML 10% VIAL 4ML INH SCH ×5 (00:39→20:18)
[2017-07-15] MEDS: THEOPHYLLINE ANHYDROUS 80 MG/15 ML 120ML PO SCH ×3 (05:59→22:00)
[2017-07-15] MEDS: SILDENAFIL CITRATE 20MG TABLET PO SCH ×3 (05:59→22:00)
[2017-07-15 06:52] LABS: BASOPHILS % 0.4 % (0.0-2.0); EOSINOPHILS % 0.1 % (0.0-5.0); HEMATOCRIT. 35.1 % (42.0-52.0); HEMOGLOBIN. 11.5 g/dL (14.0-18.0); LYMPHOCYTES % 10.9 % (20.0-50.0); MEAN CORPUSCULAR HEMOGLOBIN 31.6 pg (28.0-32.0); MEAN CORPUSCULAR VOLUME 96.4 fL (80.0-94.0); MEAN PLATELET VOLUME 7.6 fl (7.4-10.4); MONOCYTES % 7.5 % (2.0-8.0); NEUTROPHILS % 81.1 % (40.0-76.0); PLATELET 228 x1000/uL (130-400); RED BLOOD CELL COUNT 3.64 mill/uL (4.7-6.1); RED CELL DISTRIBUTION WIDTH 13.8 % (11.6-14.6)
[2017-07-15 07:17] LABS: CARBON DIOXIDE 37 mEq/L (21-32); CHLORIDE 96 mEq/L (98-107)
[2017-07-15] MEDS: BUDESONIDE 0.5MG/2ML NEB HHN SCH ×2 (09:20→20:18)
[2017-07-15] MEDS: METHYLPREDNISOLONE SOD SUCC 40 MG/ML VIAL IV SCH (09:24)
[2017-07-15] MEDS: PANTOPRAZOLE SODIUM 40 MG/VIAL IV SCH (09:24)
[2017-07-15] MEDS: LOSARTAN POTASSIUM 25 MG TABLET PO SCH (09:25)
[2017-07-15] MEDS: AMLODIPINE 5MG TABLET PO SCH ×2 (09:25→20:53)
[2017-07-15] MEDS: ENOXAPARIN 30MG/0.3ML SYR SUBCUT SCH ×2 (09:25→20:53)
[2017-07-15] MEDS ORDERED: LORAZEPAM 2MG/ML CPJ IV PRN (10:30)
[2017-07-15] MEDS: MORPHINE SULFATE 4 MG/ML CPJ (NOT FOR IM USE) IV PRN ×5 (11:22→19:53)
[2017-07-15] MEDS: LEVOFLOXACIN 750MG PREMIX 150 ML IV SCH (14:07)
[2017-07-15] MEDS: PREDNISONE 20MG TABLET PO SCH (17:39)
[2017-07-15] MEDS: ZOLPIDEM TARTRATE 5MG TABLET PO PRN (20:54)
[2017-07-15] MEDS ORDERED: TRAZODONE HCL 50MG TABLET PO SCH (21:00)
[2017-07-16] VITALS (10 sets, daily range): BP systolic 111–128; BP diastolic 40–82
[2017-07-16] MEDS: ACETYLCYSTEINE 100MG/ML 10% VIAL 4ML INH SCH ×6 (00:20→20:25)
[2017-07-16] MEDS: IPRATROPIUM/ALBUTEROL 0.5-3(2.5)MG/3ML NEB HHN SCH ×6 (00:20→20:25)
[2017-07-16] MEDS: MORPHINE SULFATE 4 MG/ML CPJ (NOT FOR IM USE) IV PRN ×7 (02:38→19:48)
[2017-07-16] MEDS: THEOPHYLLINE ANHYDROUS 80 MG/15 ML 120ML PO SCH ×3 (05:32→21:12)
[2017-07-16] MEDS: SILDENAFIL CITRATE 20MG TABLET PO SCH ×3 (05:33→21:11)
[2017-07-16] MEDS: PREDNISONE 20MG TABLET PO SCH ×2 (08:12→17:25)
[2017-07-16] MEDS: PANTOPRAZOLE SODIUM 40 MG/VIAL IV SCH (08:12)
[2017-07-16] MEDS: LOSARTAN POTASSIUM 25 MG TABLET PO SCH (08:12)
[2017-07-16] MEDS: ENOXAPARIN 30MG/0.3ML SYR SUBCUT SCH ×2 (08:12→21:11)
[2017-07-16] MEDS: AMLODIPINE 5MG TABLET PO SCH ×2 (08:12→21:00)
[2017-07-16] MEDS: LEVOFLOXACIN 750MG PREMIX 150 ML IV SCH (14:24)
[2017-07-16] MEDS: TRAZODONE HCL 50MG TABLET PO SCH (17:28)
[2017-07-16] MEDS: ZOLPIDEM TARTRATE 5MG TABLET PO PRN (21:11)
[2017-07-17] VITALS (12 sets, daily range): BP systolic 93–128; BP diastolic 49–82
[2017-07-17] MEDS: IPRATROPIUM/ALBUTEROL 0.5-3(2.5)MG/3ML NEB HHN SCH ×6 (00:37→20:21)
[2017-07-17] MEDS: MORPHINE SULFATE 4 MG/ML CPJ (NOT FOR IM USE) IV PRN ×7 (04:06→20:35)
[2017-07-17] MEDS: THEOPHYLLINE ANHYDROUS 80 MG/15 ML 120ML PO SCH ×3 (05:18→21:43)
[2017-07-17] MEDS: SILDENAFIL CITRATE 20MG TABLET PO SCH ×3 (05:18→21:44)
[2017-07-17] MEDS: TRAZODONE HCL 50MG TABLET PO SCH ×2 (08:53→17:36)
[2017-07-17] MEDS: PREDNISONE 20MG TABLET PO SCH ×2 (08:53→17:36)
[2017-07-17] MEDS: LOSARTAN POTASSIUM 25 MG TABLET PO SCH (08:53)
[2017-07-17] MEDS: AMLODIPINE 5MG TABLET PO SCH ×2 (08:54→20:41)
[2017-07-17] MEDS: ENOXAPARIN 30MG/0.3ML SYR SUBCUT SCH ×2 (08:54→20:30)
[2017-07-17] MEDS: DORZOLAMIDE 2% OPHTH 10 ML BOTTLE RIGHTEYE SCH ×3 (11:44→21:44)
[2017-07-17] MEDS: LEVOFLOXACIN 750MG PREMIX 150 ML IV SCH (14:59)
[2017-07-17] MEDS: ZOLPIDEM TARTRATE 5MG TABLET PO PRN (20:31)
[2017-07-17] MEDS: GUAIFENESIN 600MG ER TABLET PO SCH (20:31)
[2017-07-18] VITALS (12 sets, daily range): BP systolic 90–126; BP diastolic 57–77
[2017-07-18] MEDS: IPRATROPIUM/ALBUTEROL 0.5-3(2.5)MG/3ML NEB HHN SCH ×7 (00:21→23:21)
[2017-07-18] MEDS: MORPHINE SULFATE 4 MG/ML CPJ (NOT FOR IM USE) IV PRN ×9 (00:53→23:49)
[2017-07-18 06:32] LABS: BASOPHILS % 0.3 % (0.0-2.0); HEMATOCRIT. 35.2 % (42.0-52.0); HEMOGLOBIN. 11.7 g/dL (14.0-18.0); LYMPHOCYTES % 9.9 % (20.0-50.0); MEAN CORPUSCULAR HEMOGLOBIN 32.1 pg (28.0-32.0); MEAN CORPUSCULAR VOLUME 96.6 fL (80.0-94.0); MEAN PLATELET VOLUME 7.9 fl (7.4-10.4); MONOCYTES % 7.9 % (2.0-8.0); NEUTROPHILS % 81.9 % (40.0-76.0); PLATELET 235 x1000/uL (130-400); RED BLOOD CELL COUNT 3.65 mill/uL (4.7-6.1); RED CELL DISTRIBUTION WIDTH 13.9 % (11.6-14.6)
[2017-07-18] MEDS: THEOPHYLLINE ANHYDROUS 80 MG/15 ML 120ML PO SCH ×3 (06:50→22:26)
[2017-07-18] MEDS: DORZOLAMIDE 2% OPHTH 10 ML BOTTLE RIGHTEYE SCH ×3 (06:51→20:58)
[2017-07-18] MEDS: SILDENAFIL CITRATE 20MG TABLET PO SCH ×3 (06:51→20:58)
[2017-07-18 07:53] LABS: CARBON DIOXIDE 35 mEq/L (21-32); CHLORIDE 96 mEq/L (98-107)
[2017-07-18] MEDS: PREDNISONE 20MG TABLET PO SCH ×2 (08:32→17:55)
[2017-07-18] MEDS: AMLODIPINE 5MG TABLET PO SCH ×2 (08:32→20:59)
[2017-07-18] MEDS: GUAIFENESIN 600MG ER TABLET PO SCH ×2 (08:32→20:57)
[2017-07-18] MEDS: TRAZODONE HCL 50MG TABLET PO SCH ×2 (08:32→17:54)
[2017-07-18] MEDS: ENOXAPARIN 30MG/0.3ML SYR SUBCUT SCH ×2 (08:33→20:59)
[2017-07-18] MEDS: LOSARTAN POTASSIUM 25 MG TABLET PO SCH (08:35)
[2017-07-18] MEDS: LACTULOSE 20G/30ML UDC PO PRN (10:30)
[2017-07-18] MEDS: LEVOFLOXACIN 250MG TABLET PO SCH (11:56)
[2017-07-18] MEDS ORDERED: ALPRAZOLAM 0.5 MG TABLET PO PRN (13:45)
[2017-07-18] MEDS: ZOLPIDEM TARTRATE 5MG TABLET PO PRN (20:57)
[2017-07-19] VITALS (13 sets, daily range): BP systolic 103–143; BP diastolic 65–88
[2017-07-19] MEDS: IPRATROPIUM/ALBUTEROL 0.5-3(2.5)MG/3ML NEB HHN SCH ×6 (03:55→20:41)
[2017-07-19] MEDS: MORPHINE SULFATE 4 MG/ML CPJ (NOT FOR IM USE) IV PRN ×5 (03:57→19:12)
[2017-07-19] MEDS: SILDENAFIL CITRATE 20MG TABLET PO SCH ×2 (06:33→13:21)
[2017-07-19] MEDS: DORZOLAMIDE 2% OPHTH 10 ML BOTTLE RIGHTEYE SCH ×2 (06:35→13:21)
[2017-07-19] MEDS: THEOPHYLLINE ANHYDROUS 80 MG/15 ML 120ML PO SCH ×2 (06:35→13:22)
[2017-07-19 06:45] LABS: BASOPHILS % 0.2 % (0.0-2.0); HEMATOCRIT. 33.6 % (42.0-52.0); HEMOGLOBIN. 11.2 g/dL (14.0-18.0); LYMPHOCYTES % 8.2 % (20.0-50.0); MEAN CORPUSCULAR HEMOGLOBIN 32.1 pg (28.0-32.0); MEAN CORPUSCULAR VOLUME 96.6 fL (80.0-94.0); MEAN PLATELET VOLUME 7.8 fl (7.4-10.4); MONOCYTES % 8.3 % (2.0-8.0); NEUTROPHILS % 83.3 % (40.0-76.0); PLATELET 185 x1000/uL (130-400); RED BLOOD CELL COUNT 3.48 mill/uL (4.7-6.1); RED CELL DISTRIBUTION WIDTH 14.3 % (11.6-14.6)
[2017-07-19 07:07] LABS: CARBON DIOXIDE 35 mEq/L (21-32); CHLORIDE 95 mEq/L (98-107)
[2017-07-19] MEDS: PREDNISONE 20MG TABLET PO SCH ×2 (09:09→17:52)
[2017-07-19] MEDS: GUAIFENESIN 600MG ER TABLET PO SCH (09:09)
[2017-07-19] MEDS: ENOXAPARIN 30MG/0.3ML SYR SUBCUT SCH (09:10)
[2017-07-19] MEDS: TRAZODONE HCL 50MG TABLET PO SCH ×2 (09:10→17:52)
[2017-07-19] MEDS: AMLODIPINE 5MG TABLET PO SCH (09:10)
[2017-07-19] MEDS: LOSARTAN POTASSIUM 25 MG TABLET PO SCH (09:10)
[2017-07-19] MEDS: LACTULOSE 20G/30ML UDC PO PRN (11:11)
[2017-07-19] MEDS: LEVOFLOXACIN 250MG TABLET PO SCH (11:12)
== END 2017-07-19 21:15 | DRG 870 ==
LOC: ER 17:57 → CVICU 20:17 → ENRESERV 21:06 → 5EST 07-14 17:00
PROVIDERS: ADMIT Internal Medicine Critical Care Medicine; ATTEND Internal Medicine Critical Care Medicine
PROC: 5A1955Z Respiratory Ventilation, Greater than 96 Consecutive Hours (ICD-10-PCS; principal; 2017-07-08)
PROC: 0BH17EZ Insertion of Endotracheal Airway into Trachea, Via Natural or Artificial Opening (ICD-10-PCS; 2017-07-08)
PROC: 02HV33Z Insertion of Infusion Device into Superior Vena Cava, Percutaneous Approach (ICD-10-PCS; 2017-07-09)
PROC: B548ZZA Ultrasonography of Superior Vena Cava, Guidance (ICD-10-PCS; 2017-07-09)
DX: A41.9 Sepsis, unspecified organism (principal); J96.21 Acute and chronic respiratory failure with hypoxia; J15.6 Pneumonia due to other Gram-negative bacteria; J44.0 Chronic obstructive pulmonary disease with (acute) lower respiratory infection; J84.9 Interstitial pulmonary disease, unspecified; I42.9 Cardiomyopathy, unspecified; I47.1 Supraventricular tachycardia; J44.1 Chronic obstructive pulmonary disease with (acute) exacerbation; I27.2 Other secondary pulmonary hypertension; I50.9 Heart failure, unspecified; D64.9 Anemia, unspecified; F41.9 Anxiety disorder, unspecified; G89.29 Other chronic pain; H40.9 Unspecified glaucoma; I10 Essential (primary) hypertension; I27.81 Cor pulmonale (chronic); I48.0 Paroxysmal atrial fibrillation; K59.00 Constipation, unspecified; M54.30 Sciatica, unspecified side; Z66 Do not resuscitate; Z86.79 Personal history of other diseases of the circulatory system; Z90.5 Acquired absence of kidney; Z99.81 Dependence on supplemental oxygen
CPT/HCPCS: 31500; 36415; 36569; 36600; 71010; 74000; 76604; 76937; 78580; 80048; 80053; 80198; 81001; 82375; 82805; 83605; 83880; 84478; 84484; 85025; 85610; 87040; 87070; 87077; 87086; 87186; 92610; 93005; 93306; 93970; 94002; 94003; 94640; 94664; 96365; 96366; 96375; 96376; 97116; 97162; 97166; 97530; 99291; A6261; C1725; C9113; J0330; J0692; J0770; J1650; J1940; J1956; J2060; J2250; J2270; J2704; J2920; J2930; J3010; J3490; J7040; J7050; J7060; J7512; J7608; J7611; J7620; J7626; A4315

== ENCOUNTER 2017-08-24 02:51 | Inpatient (IN) | payer MEDICARE, MEDICAID ==
[~2017-08-24] VITALS: Ht 177.8 cm; Wt 112.0 kg
[2017-08-24] MEDS ORDERED: ALBUTEROL (0.083%) 2.5MG/3ML NEB HHN STA ×2 (03:22→04:09)
[2017-08-24] MEDS ORDERED: IPRATROPIUM BROMIDE (0.02%) 0.5MG/2.5ML NEB HHN STA ×2 (03:22→04:09)
[2017-08-24] MEDS ORDERED: METHYLPREDNISOLONE SOD SUCC 125 MG/2 ML VIAL IV STA (03:22)
[2017-08-24] MEDS ORDERED: ALBUTEROL (0.5%) 2.5MG/0.5ML NEB HHN ONE (03:33)
[2017-08-24] MEDS ORDERED: IPRATROPIUM BROMIDE (0.02%) 0.5MG/2.5ML NEB ONE (03:34)
[2017-08-24 03:42] LABS: BASOPHILS % 1.2 % (0.0-2.0); EOSINOPHILS % 1.7 % (0.0-5.0); HEMATOCRIT. 36.2 % (42.0-52.0); LYMPHOCYTES % 21.6 % (20.0-50.0); MEAN CORPUSCULAR HEMOGLOBIN 32.5 pg (28.0-32.0); MEAN CORPUSCULAR VOLUME 97.9 fL (80.0-94.0); MEAN PLATELET VOLUME 6.8 fl (7.4-10.4); MONOCYTES % 14.9 % (2.0-8.0); NEUTROPHILS % 60.6 % (40.0-76.0); PLATELET 218 x1000/uL (130-400); RED BLOOD CELL COUNT 3.69 mill/uL (4.7-6.1); RED CELL DISTRIBUTION WIDTH 14.7 % (11.6-14.6)
[2017-08-24 03:47] LABS: INR 1.1
[2017-08-24 03:58] LABS: CARBON DIOXIDE 39 mEq/L (21-32); CHLORIDE 98 mEq/L (98-107); TROPONIN I < 0.02 ng/mL (0.00-0.04)
[2017-08-24] MEDS ORDERED: MAGNESIUM 2 G PREMIX 50 ML IV STA (04:09)
[2017-08-24] MEDS ORDERED: HYDROCODONE/ACETAMINOPHEN 5/325MG TABLET PO ONE (05:00)
[2017-08-24] MEDS ORDERED: IPRATROPIUM/ALBUTEROL 0.5-3(2.5)MG/3ML NEB INH PRN (05:15)
[2017-08-24] MEDS ORDERED: GUAIFENESIN 200MG/10ML SUGAR FREE UDC PO PRN (05:15)
[2017-08-24] MEDS ORDERED: DIPHENHYDRAMINE 50MG/ML VIAL IV PRN (05:15)
[2017-08-24] MEDS ORDERED: ACETAMINOPHEN 325MG TABLET PO PRN (05:15)
[2017-08-24] MEDS ORDERED: HYDROCODONE/ACETAMINOPHEN 5/325MG TABLET PO PRN (05:15)
[2017-08-24] MEDS ORDERED: MAGNESIUM/ALUMINUM HYDROXIDE/SIMETHICONE 30ML UDC PO PRN (05:15)
[2017-08-24] MEDS ORDERED: ONDANSETRON HCL 4MG/2ML VIAL IV PRN (05:15)
[2017-08-24] MEDS ORDERED: CLONIDINE 0.1MG TABLET PO PRN (05:15)
[2017-08-24 08:22] VITALS: BP 152/101
[2017-08-24] MEDS ORDERED: THEOPHYLLINE ANHYDROUS 80 MG/15 ML 120ML PO SCH (09:00)
[2017-08-24] MEDS: SILDENAFIL CITRATE 20MG TABLET PO SCH ×3 (09:53→21:24)
[2017-08-24] MEDS: LISINOPRIL 40MG TABLET PO SCH (09:53)
[2017-08-24] MEDS: PANTOPRAZOLE 40MG DR TABLET PO SCH (09:54)
[2017-08-24] MEDS: SODIUM CHLORIDE 0.9% INJ 3ML FLUSH IVF SCH ×3 (09:54→21:25)
[2017-08-24] MEDS ORDERED: METHYLPREDNISOLONE SOD SUCC 125 MG/2 ML VIAL IV SCH (10:00)
[2017-08-24 10:33] VITALS: BP 152/101
[2017-08-24] MEDS ORDERED: LORAZEPAM 2MG/ML CPJ IV PRN (10:45)
[2017-08-24] MEDS: IPRATROPIUM/ALBUTEROL 0.5-3(2.5)MG/3ML NEB HHN SCH ×4 (10:55→21:04)
[2017-08-24 11:02] LABS: BG CARBOXYHEMOGLOBIN 0.5 % (0.5-1.5); BG DEOXYHEMOGLOBIN 7.6 % (0.0-5.0); BG FRACTION INSPIRED OXYGEN 40; BG HCO3 ACT 39.8 mmol/L (22.0-26.0); BG METHEMOGLOBIN 0.4 % (0.0-1.5); BG OXYGEN SATURATION 92.3 % (92.0-98.5); BG OXYHEMOGLOBIN 91.5 % (94.0-97.0); BG PCO2 73.9 mmHg (35.0-45.0); BG PH 7.349 (7.350-7.450); BG PO2 68.7 mmHg (75.0-100.0); BG SAMPLE SITE RIGHT RADIAL; BG TOTAL HEMOGLOBIN 13.8 g/dL (12.0-18.0); BG VENT MODE MASK - CPAP
[2017-08-24] MEDS: QUETIAPINE FUMARATE 25MG TABLET PO SCH ×2 (11:37→21:24)
[2017-08-24 12:03] VITALS: BP 148/64
[2017-08-24] MEDS: BUDESONIDE 0.5MG/2ML NEB HHN SCH ×2 (12:03→21:04)
[2017-08-24] MEDS: FUROSEMIDE 40MG/4ML VIAL IVP SCH (14:20)
[2017-08-24 15:29] VITALS: BP 109/61
[2017-08-24] MEDS: DILTIAZEM HCL 60MG TABLET PO SCH (17:17)
[2017-08-24] MEDS ORDERED: [UNRECOGNIZED DRUG - CODE] PO (18:32)
[2017-08-24] MEDS ORDERED: THEO80SO PO (18:32)
[2017-08-24] MEDS ORDERED: LOV40 SQ (18:32)
[2017-08-24] MEDS ORDERED: KDUR20 PO (18:32)
[2017-08-24] MEDS ORDERED: SILD20TA PO (18:32)
[2017-08-24] MEDS ORDERED: DORZ10DR7 EACHEYE (18:32)
[2017-08-24] MEDS ORDERED: AMLO2.5T45 PO (18:32)
[2017-08-24] MEDS ORDERED: PRED10TA PO (18:32)
[2017-08-24] MEDS ORDERED: METH10TA7 PO (18:32)
[2017-08-24] MEDS ORDERED: LOSA25TA12 PO (18:32)
[2017-08-24] MEDS ORDERED: DIPH25CA83 PO (18:32)
[2017-08-24 18:36] LABS: CLARITY URINE CLEAR (CLEAR); COLOR URINE YELLOW (YELLOW); GLUCOSE URINE NEGATIVE (NEGATIVE); KETONES URINE NEGATIVE (NEGATIVE); LEUKOCYTE ESTERASE URINE NEGATIVE (NEGATIVE); NITRITE URINE NEGATIVE (NEGATIVE); OCCULT BLOOD URINE NEGATIVE (NEGATIVE); PH URINE 7.5 (4.5-8.0); PROTEIN URINE NEGATIVE (NEGATIVE); SPECIFIC GRAVITY URINE 1.013 (1.005-1.030); UROBILINOGEN URINE 0.2 E.U./dL (0.2-1.0)
[2017-08-24 20:00] VITALS: BP 132/78
[2017-08-24] MEDS ORDERED: TRAZODONE HCL 100MG TABLET PO SCH (21:00)
[2017-08-24] MEDS ORDERED: ZOLPIDEM TARTRATE 5MG TABLET PO PRN (21:45)
[2017-08-25] MEDS: IPRATROPIUM/ALBUTEROL 0.5-3(2.5)MG/3ML NEB HHN SCH ×5 (00:59→15:45)
[2017-08-25 04:00] VITALS: BP 101/51
[2017-08-25] MEDS: SILDENAFIL CITRATE 20MG TABLET PO SCH ×2 (06:00→16:10)
[2017-08-25] MEDS: DILTIAZEM HCL 60MG TABLET PO SCH ×3 (06:00→12:34)
[2017-08-25] MEDS: PANTOPRAZOLE 40MG DR TABLET PO SCH (06:34)
[2017-08-25] MEDS: SODIUM CHLORIDE 0.9% INJ 3ML FLUSH IVF SCH ×2 (06:35→16:10)
[2017-08-25 08:00] VITALS: BP 130/90
[2017-08-25] MEDS: BUDESONIDE 0.5MG/2ML NEB HHN SCH (09:45)
[2017-08-25] MEDS: LISINOPRIL 40MG TABLET PO SCH (10:07)
[2017-08-25] MEDS: QUETIAPINE FUMARATE 25MG TABLET PO SCH (10:08)
[2017-08-25] MEDS: FUROSEMIDE 40MG/4ML VIAL IVP SCH (10:09)
[2017-08-25 12:00] VITALS: BP 119/71
[2017-08-25 16:28] VITALS: BP 134/84
[2017-08-25 16:30] VITALS: BP 134/84
== END 2017-08-25 17:15 | DRG 189 ==
LOC: ER 02:51 → 5WST 04:48 → EDBEDREQ 04:50 → ENRESERV 07:33
PROVIDERS: ADMIT Internal Medicine; ATTEND Internal Medicine
PROC: 5A09357 Assistance with Respiratory Ventilation, Less than 24 Consecutive Hours, Continuous Positive Airway Pressure (ICD-10-PCS; principal; 2017-08-24)
DX: J96.20 Acute and chronic respiratory failure, unspecified whether with hypoxia or hypercapnia (principal); J84.9 Interstitial pulmonary disease, unspecified; I27.20 Pulmonary hypertension, unspecified; I13.0 Hypertensive heart and chronic kidney disease with heart failure and stage 1 through stage 4 chronic kidney disease, or unspecified chronic kidney disease; I50.22 Chronic systolic (congestive) heart failure; I42.9 Cardiomyopathy, unspecified; J44.1 Chronic obstructive pulmonary disease with (acute) exacerbation; Z66 Do not resuscitate; D63.8 Anemia in other chronic diseases classified elsewhere; E66.9 Obesity, unspecified; F41.1 Generalized anxiety disorder; I27.81 Cor pulmonale (chronic); I48.0 Paroxysmal atrial fibrillation; Z96.1 Presence of intraocular lens; G89.29 Other chronic pain; M54.30 Sciatica, unspecified side; K59.00 Constipation, unspecified; N18.9 Chronic kidney disease, unspecified; Z86.79 Personal history of other diseases of the circulatory system; Z87.891 Personal history of nicotine dependence; Z99.81 Dependence on supplemental oxygen; Z87.01 Personal history of pneumonia (recurrent); Z90.5 Acquired absence of kidney; Z98.42 Cataract extraction status, left eye; Z98.41 Cataract extraction status, right eye; Z68.35 Body mass index [BMI] 35.0-35.9, adult; Z82.49 Family history of ischemic heart disease and other diseases of the circulatory system
CPT/HCPCS: 36415; 36600; 71010; 80053; 81003; 82375; 82805; 83605; 83690; 83880; 84484; 85025; 85610; 87040; 93005; 94640; 94660; 96374; 96375; 99291; J1940; J2930; J3475; J7611; J7620; J7626

== ENCOUNTER 2017-08-27 01:22 | Emergency (ER) | payer MEDICARE, MEDICAID ==
[~2017-08-27] VITALS: Ht 182.9 cm; Wt 104.0 kg
[~2017-08-27 01:22] MED LIST changes: +AMLO2.5T45 PO; +DIPH25CA83 PO; +DORZ10DR7 EACHEYE; -ETOMIDATE 2MG/ML 10ML VIAL IV ONE; +KDUR20 PO; +LOSA25TA12 PO; +LOV40 SQ; +METH10TA7 PO; +PRED10TA PO; +SILD20TA PO; -SUCCINYLCHOLINE CHLORIDE 200MG/10ML VIAL IV ONE; +THEO80SO PO; +[UNRECOGNIZED DRUG - CODE] PO
[2017-08-27] MEDS ORDERED: IPRATROPIUM BROMIDE (0.02%) 0.5MG/2.5ML NEB HHN STA (01:43)
[2017-08-27] MEDS ORDERED: FUROSEMIDE 40MG/4ML VIAL IV STA (01:43)
[2017-08-27] MEDS ORDERED: ALBUTEROL (0.083%) 2.5MG/3ML NEB HHN STA (01:43)
[2017-08-27 02:26] LABS: BASOPHILS % 0.4 % (0.0-2.0); EOSINOPHILS % 0.8 % (0.0-5.0); HEMATOCRIT. 38.4 % (42.0-52.0); HEMOGLOBIN. 12.6 g/dL (14.0-18.0); LYMPHOCYTES % 9.1 % (20.0-50.0); MEAN CORPUSCULAR HEMOGLOBIN 32.5 pg (28.0-32.0); MEAN PLATELET VOLUME 7.4 fl (7.4-10.4); MONOCYTES % 11.1 % (2.0-8.0); NEUTROPHILS % 78.6 % (40.0-76.0); PLATELET 233 x1000/uL (130-400); RED BLOOD CELL COUNT 3.88 mill/uL (4.7-6.1); RED CELL DISTRIBUTION WIDTH 14.4 % (11.6-14.6)
[2017-08-27 02:38] LABS: CHLORIDE 97 mEq/L (98-107); TROPONIN I < 0.02 ng/mL (0.00-0.04)
[2017-08-27 03:00] LABS: CARBON DIOXIDE 40 mEq/L (21-32)
[2017-08-27 03:01] LABS: BG BASE EXCESS 8.7 mmol/L (-2.0-2.0); BG BILEVEL POS AIRWAY PRESSURE 15/5; BG CARBOXYHEMOGLOBIN 0.9 % (0.5-1.5); BG DEOXYHEMOGLOBIN 0.5 % (0.0-5.0); BG FRACTION INSPIRED OXYGEN 50; BG METHEMOGLOBIN 0.4 % (0.0-1.5); BG OXYGEN SATURATION 99.5 % (92.0-98.5); BG OXYHEMOGLOBIN 98.2 % (94.0-97.0); BG PCO2 69.2 mmHg (35.0-45.0); BG PH 7.346 (7.350-7.450); BG PO2 274.2 mmHg (75.0-100.0); BG SAMPLE SITE RIGHT RADIAL; BG TOTAL HEMOGLOBIN 13.4 g/dL (12.0-18.0); BG VENT MODE MASK - BIPAP; BG VENT RATE 12 set
[2017-08-27 09:30] VITALS: BP 108/72
== END 2017-08-27 09:51 ==
LOC: ER 01:30 → CANBEDREQ 06:27 → ER 09:51
DX: J44.9 Chronic obstructive pulmonary disease, unspecified (principal); J96.90 Respiratory failure, unspecified, unspecified whether with hypoxia or hypercapnia; J84.10 Pulmonary fibrosis, unspecified; I50.9 Heart failure, unspecified; I11.0 Hypertensive heart disease with heart failure; E11.9 Type 2 diabetes mellitus without complications
CPT/HCPCS: 36415; 36600; 71010; 80053; 82375; 82805; 83605; 83880; 84484; 85025; 87040; 93005; 94640; 96374; 99291; J1940; J7611